=== PATIENT | female | born 1945 | race Caucasian/White ===

== ENCOUNTER 2016-04-23 10:26 | Emergency (ER) | payer MEDICARE ==
[2016-04-23 10:33] VITALS: BP 179/76
--- NOTE | 2016-04-23 10:35 | UC ---
Complaint Female HPI - HPI Summary HPI Summary: Day 2 of pain urgency burning frequency no fevers, chills, back pain, nausea or vomiting - History Of Current Complaint Chief Complaint: UCGU Stated Complaint: UTI Time Seen by Provider: 04/23/16 10:33 Hx Obtained From: Patient ?: No Onset/Duration: Sudden Onset, Lasting Days - 2, Still Present Timing: Constant Severity Initially: Moderate Severity Currently: Moderate Pain Intensity: 6 Pain Scale Used: 0-10 Numeric Character: Burning Aggravating Factor(s): Urination Alleviating Factor(s): Nothing Associated Signs And Symptoms: Negative: Fever, Back Pain, Vaginal Bleeding/ Discharge, Vaginal Discharge, Nausea, Vomiting(# Of Episodes =), Genital Swelling - Allergies/Home Medications Allergies/Adverse Reactions: Allergies Allergy/AdvReac Type Severity Reaction Status Date / Time Iodinated Diagnostic Agents Allergy Intermediate Swelling Verified 01/28/16 16: 05 Ciprofloxacin [From Cipro] Allergy Rash And Verified 01/28/16 16:05 Itching PMH/Surg Hx/FS Hx/Imm Hx Previously Healthy: No Endocrine History Of: Reports: Thyroid Disease Denies: Diabetes Cardiovascular History Of: Reports: Hypertension Denies: Cardiac Disorders, Pacemaker/ICD Respiratory History Of: Reports: COPD - Emphysema Denies: Asthma GI/ History Of: Reports: Ulcer Psychological History Of: Reports: Anxiety, Depression - Surgical History Surgical History: Yes Surgery Procedure, Year, and Place: Hysterectomy, laparoscopy, tonsillectomy, eye surgery for melanoma radiation treatment ,lt wrist surgery radius ulna. - Family History Known Family History: Positive: Hypertension, Other - no FHx of kidney stones or kidney disease Negative: Renal Disease - Social History Occupation: Retired Lives: With Family Alcohol Use: Occasionally Alcohol Amount: couple glasses of wine daily Substance Use Type: None Smoking Status (MU): Former Smoker Type: Cigarettes Amount Used/How Often: 1 ppd Length of Time of Smoking/Using Tobacco: 26 years Have You Smoked in the Last Year: No When Did the Patient Quit Smoking/Using Tobacco: 1991 - Immunization History Most Recent Influenza Vaccination: Season Most Recent Tetanus Shot: 2009 Most Recent Pneumonia Vaccination: never Review of Systems Constitutional: Negative Skin: Negative Eyes: Negative ENT: Negative Respiratory: Negative Cardiovascular: Negative Gastrointestinal: Negative Genitourinary: Dysuria, Hematuria, Frequency, Urgency Motor: Negative Neurovascular: Negative Musculoskeletal: Negative Neurological: Negative Psychological: Negative All Other Systems Reviewed And Are Negative: Yes Physical Exam Triage Information Reviewed: Yes Appearance: Well-Appearing, No Pain Distress, Well-Nourished Vital Signs: Initial Vital Signs Temp 97.2 F 04/23/16 10:28 Pulse 79 04/23/16 10:28 Resp 18 04/23/16 10:28 BP 179/76 04/23/16 10:28 Pulse Ox 98 04/23/16 10:28 Vital Signs Reviewed: Yes Eye Exam: Normal Eyes: Positive: Conjunctiva Clear ENT Exam: Normal ENT: Positive: Normal ENT inspection, Hearing grossly normal. Negative: Nasal congestion, Nasal drainage, Trismus, Muffled/hoarse voice Neck exam: Normal Neck: Positive: Supple, Nontender Respiratory Exam: Normal Respiratory: Positive: Chest non-tender, Lungs clear, Normal breath sounds, No respiratory distress, No accessory muscle use Cardiovascular Exam: Normal Cardiovascular: Positive: RRR, No Murmur, Pulses Normal, Brisk Capillary Refill Abdominal Exam: Normal Abdomen Description: Positive: No Organomegaly, Soft, Other: - supra pubic tenderness Bowel Sounds: Positive: Present Musculoskeletal Exam: Normal Musculoskeletal: Positive: Strength Intact, ROM Intact, No Edema Neurological Exam: Normal Neurological: Positive: Alert, Muscle Tone Normal Psychological Exam: Normal Skin Exam: Normal Diagnostics - Laboratory Diagnostic Studies Completed/Ordered: ua--positive for blood and leuks Complaint Female Dx - Course Course Of Treatment: keflex, pyridium, increase fluids, use inhaler for cough, follow with pcp - Differential Dx/Diagnosis Differential Diagnosis/HQI/PQRI: Renal Colic, Ureteral Stone, Urinary Tract Infection Provider Diagnoses: UTI, HYpertension, cough Discharge - Discharge Plan Condition: Stable Disposition: HOME Prescriptions: Cephalexin CAP* [Keflex CAP*] 500 mg PO BID #20 cap Phenazopyridine TAB* [Pyridium TAB*] 100 mg PO TID PRN #9 tab PRN Reason: urinary pain Patient Education Materials: Phenazopyridine (By mouth), Albuterol (By breathing), Urinary Tract Infection in Women (ED), How to Use a Metered-Dose Inhaler (ED) Referrals: Ruth Russell MD [Primary Care Provider] - If Needed Ghulam Randall MD [Medical Doctor] - 2 Weeks
== END 2016-04-23 10:50 | disposition home or self-care (01) ==
LOC: UCEAST 10:26
DX: N39.0 Urinary tract infection, site not specified (principal); I10 Essential (primary) hypertension; R05 Cough; J43.9 Emphysema, unspecified; F41.9 Anxiety disorder, unspecified; F32.9 Major depressive disorder, single episode, unspecified; Z87.891 Personal history of nicotine dependence; Z88.1 Allergy status to other antibiotic agents; E07.9 Disorder of thyroid, unspecified
CPT/HCPCS: 81002; 87077; 87086; 99212; G0463

== ENCOUNTER 2017-01-20 10:05 | Emergency (ER) | payer MEDICARE ==
[2017-01-20 10:28] VITALS: BP 176/87
--- NOTE | 2017-01-20 10:54 | UC ---
Complaint Female HPI - HPI Summary HPI Summary: Patient presents to the with CC of urgency, frequency, burning upon urination. Dark colored, cloudy urine. Denies flank pain. Denies diaphoresis and chills. Denies known fever. No abnormal vaginal discharge reported. Otherwise healthy. She states she had a UTI 6 months ago and was treated in with abx with relief. Denies other symptoms including malaise. - History Of Current Complaint Chief Complaint: UCGU Stated Complaint: URINARY ISSUE Time Seen by Provider: 01/20/17 10:41 Hx Obtained From: Patient ?: No Onset/Duration: Sudden Onset Timing: Constant Severity Initially: Moderate Severity Currently: Moderate Pain Intensity: 5 Pain Scale Used: 0-10 Numeric Character: Sharp, Burning Aggravating Factor(s): Nothing Associated Signs And Symptoms: Positive: Negative - Risk Factors Ectopic Risk Factor: Negative Ovarian Torsion Risk Factor: Negative - Allergies/Home Medications Allergies/Adverse Reactions: Allergies Allergy/AdvReac Type Severity Reaction Status Date / Time Iodinated Diagnostic Agents Allergy Intermediate Swelling Verified 01/20/17 10: 23 Ciprofloxacin [From Cipro] Allergy Rash And Verified 01/20/17 10:23 Itching PMH/Surg Hx/FS Hx/Imm Hx Previously Healthy: Yes - Surgical History Surgical History: Yes Surgery Procedure, Year, and Place: Hysterectomy, laparoscopy, tonsillectomy, eye surgery for melanoma radiation treatment ,lt wrist surgery radius ulna. - Family History Known Family History: Positive: Hypertension, Other - no FHx of kidney stones or kidney disease Negative: Renal Disease - Social History Occupation: Unemployed Lives: With Family Alcohol Use: Occasionally Alcohol Amount: couple glasses of wine daily Substance Use Type: None Smoking Status (MU): Former Smoker Type: Cigarettes Amount Used/How Often: 1 ppd Length of Time of Smoking/Using Tobacco: 26 years Have You Smoked in the Last Year: No When Did the Patient Quit Smoking/Using Tobacco: 1991 - Immunization History Most Recent Influenza Vaccination: 2012/2013 Season Most Recent Tetanus Shot: 2009 Most Recent Pneumonia Vaccination: never Review of Systems Constitutional: Negative Skin: Negative Respiratory: Negative Cardiovascular: Negative Genitourinary: Dysuria, Frequency, Urgency Motor: Negative Neurovascular: Negative Musculoskeletal: Negative Neurological: Negative Is Patient Immunocompromised?: No All Other Systems Reviewed And Are Negative: Yes Physical Exam Triage Information Reviewed: Yes Appearance: Well-Appearing, Well-Nourished Vital Signs: Initial Vital Signs Temp 97.6 F 01/20/17 10:24 Pulse 73 01/20/17 10:24 Resp 16 01/20/17 10:24 BP 176/87 01/20/17 10:24 Pulse Ox 97 01/20/17 10:24 Vital Signs Reviewed: Yes Eye Exam: Normal Eyes: Positive: Conjunctiva Clear Neck exam: Normal Neck: Positive: Supple, No Lymphadenopathy Respiratory Exam: Normal Respiratory: Positive: Chest non-tender Cardiovascular Exam: Normal Cardiovascular: Positive: RRR Musculoskeletal Exam: Normal Musculoskeletal: Positive: Strength Intact Neurological Exam: Normal Neurological: Positive: Alert Psychological: Positive: Normal Response To Family, Age Appropriate Behavior Skin Exam: Normal Complaint Female Dx - Course Course Of Treatment: UA performed. WBC and leuks seen. Patient experiencing urgency, frequency and pain on urination. Dark urine noted. No abnormal vaginal discharge or bleeding. No CVA tenderness bilaterally. No previous UTI within last 6 months and no recent Augmentin use. Will treat for uncomplicated UTI. Pyridium given for comfort. Return precautions and follow up with PCP. She will start on Macrobid x 5 days. - Differential Dx/Diagnosis Differential Diagnosis/HQI/PQRI: Renal Colic, Ureteral Stone, Urinary Tract Infection Provider Diagnoses: UTI Discharge - Discharge Plan Condition: Stable Disposition: HOME Prescriptions: Nitrofurantoin Monohyd Macro [Macrobid] 100 mg PO BID #10 cap Phenazopyridine TAB* [Pyridium 100 mg TAB*] 100 mg PO TID #12 tab Patient Education Materials: Urinary Tract Infection in Women (ED) Referrals: Ruth Russell MD [Primary Care Provider] - Additional Instructions: Dx. Urinary Tract Infection Drink plenty of fluids. Supplement with cranberry or link juice. You may also take an over the counter cranberry supplement. If you have any questions about this, you may ask your pharmacist. If your symptoms have not improved in 1-2 days, if you develop fever, sweats or chills, please go to your emergency room, or call your PCP. Antibiotics were prescribed to you. Please take as directed. Supplement with over the counter probiotics on the opposite schedule of your antibiotic to prevent secondary infections. Do not take together as they may counteract each other. Pyridium: This medication is used to treat pain, burning, increased urination, and increased urge to urinate. These symptoms are usually caused by infection, injury, surgery, catheter, or other conditions that irritate the lower urinary tract. Pyridium will treat the symptoms of a urinary tract infection, but this medication does not treat the actual infection. Take the antibiotic that your doctor prescribes to treat your infection. Pyridium will most likely darken the color of your urine to an orange or red color. This is a normal effect and is not cause for alarm unless you have other symptoms such as pale or yellowed skin, fever, stomach pain, nausea, and vomiting. Darkened urine may also cause stains to your underwear, which may or may not be removed by laundering. It can also permanently stain soft contact lenses, and you should not wear them while taking this medicine.
== END 2017-01-20 11:01 | disposition home or self-care (01) ==
LOC: UCEAST 10:05
DX: N39.0 Urinary tract infection, site not specified (principal); Z87.440 Personal history of urinary (tract) infections; Z90.710 Acquired absence of both cervix and uterus; Z88.1 Allergy status to other antibiotic agents; Z91.041 Radiographic dye allergy status; Z87.891 Personal history of nicotine dependence
CPT/HCPCS: 81003; 99212; G0463

== ENCOUNTER 2017-01-26 11:38 | Emergency (ER) | payer MEDICARE ==
[2017-01-26 11:52] VITALS: BP 141/59
--- NOTE | 2017-01-26 12:55 | UC ---
Complaint Female HPI - HPI Summary HPI Summary: pain, buring hematuria this morning seen 1 week ago with similar sx rx with macrobid without much relief, no fevers, chills nausea , vomiting or back pain - History Of Current Complaint Chief Complaint: UCGU Stated Complaint: URINARY ISSUE Time Seen by Provider: 01/26/17 12:49 Hx Obtained From: Patient ?: No Onset/Duration: Gradual Onset, Lasting Days, Worse Since - this morning Timing: Constant Severity Initially: Mild Severity Currently: Mild Pain Intensity: 4 Pain Scale Used: 0-10 Numeric Character: Burning Aggravating Factor(s): Urination Alleviating Factor(s): Meds - AZO Associated Signs And Symptoms: Positive: Negative - Allergies/Home Medications Allergies/Adverse Reactions: Allergies Allergy/AdvReac Type Severity Reaction Status Date / Time Iodinated Diagnostic Agents Allergy Intermediate Swelling Verified 01/26/17 11: 52 Ciprofloxacin [From Cipro] Allergy Rash And Verified 01/26/17 11:52 Itching PMH/Surg Hx/FS Hx/Imm Hx Previously Healthy: Yes Endocrine History: Hypothyroidism, Dyslipidemia Cardiovascular History: Hypertension Psychological History: Depression - Surgical History Surgical History: Yes Surgery Procedure, Year, and Place: Hysterectomy, laparoscopy, tonsillectomy, eye surgery for melanoma radiation treatment , lt wrist surgery radius ulna. - Family History Known Family History: Positive: Hypertension, Other - no FHx of kidney stones or kidney disease Negative: Renal Disease - Social History Occupation: Retired Lives: With Family Alcohol Use: Occasionally Alcohol Amount: couple glasses of wine daily Substance Use Type: None Smoking Status (MU): Former Smoker Type: Cigarettes Amount Used/How Often: 1 ppd Length of Time of Smoking/Using Tobacco: 26 years Have You Smoked in the Last Year: No When Did the Patient Quit Smoking/Using Tobacco: 1991 - Immunization History Most Recent Influenza Vaccination: Season Most Recent Tetanus Shot: 2009 Most Recent Pneumonia Vaccination: never Review of Systems Constitutional: Negative Skin: Negative Eyes: Negative ENT: Negative Respiratory: Negative Cardiovascular: Negative Gastrointestinal: Negative Genitourinary: Dysuria, Hematuria, Frequency, Urgency Motor: Negative Neurovascular: Negative Musculoskeletal: Negative Neurological: Negative Psychological: Negative Is Patient Immunocompromised?: No All Other Systems Reviewed And Are Negative: Yes Physical Exam Triage Information Reviewed: Yes Appearance: Well-Appearing, No Pain Distress, Well-Nourished Vital Signs: Initial Vital Signs Temp 98 F 10/06/17 11:46 Pulse 84 01/26/17 11:46 Resp 18 01/26/17 11:46 BP 141/59 01/26/17 11:46 Pulse Ox 99 01/26/17 11:46 Vital Signs Reviewed: Yes Eye Exam: Normal Eyes: Positive: Conjunctiva Clear ENT Exam: Normal ENT: Positive: Normal ENT inspection, Hearing grossly normal. Negative: Nasal congestion, Nasal drainage, Trismus, Muffled/hoarse voice Dental Exam: Normal Neck exam: Normal Neck: Positive: Supple, Nontender Respiratory Exam: Normal Respiratory: Positive: Chest non-tender, No respiratory distress, No accessory muscle use Cardiovascular Exam: Normal Cardiovascular: Positive: RRR, Pulses Normal, Brisk Capillary Refill Abdominal Exam: Normal Abdomen Description: Positive: Nontender, No Organomegaly, Soft. Negative: CVA Tenderness (R), CVA Tenderness (L), Distended, Guarding, Hepatomegaly, McBurney' s Point Tenderness, Peritoneal Signs, Pulsatile Mass, Splenomegaly Bowel Sounds: Positive: Present Musculoskeletal Exam: Normal Musculoskeletal: Negative: Strength Intact, ROM Intact, No Edema Neurological Exam: Normal Neurological: Positive: Alert, Muscle Tone Normal Psychological Exam: Normal Skin Exam: Normal Complaint Female Dx - Course Course Of Treatment: Augmentin, pyrdium, increase fluids, culture urine, follow with pcp prn - Differential Dx/Diagnosis Differential Diagnosis/HQI/PQRI: Renal Colic, Ureteral Stone, Urinary Tract Infection Provider Diagnoses: UTI Discharge - Discharge Plan Condition: Stable Disposition: HOME Prescriptions: Amoxicillin/Clavulanate TAB* [Augmentin TAB 500 mg*] 500 mg PO TID #30 tab Phenazopyridine TAB* [Pyridium 100 mg TAB*] 100 mg PO TID PRN #15 tab PRN Reason: urinary pain Patient Education Materials: Phenazopyridine (By mouth), Urinary Tract Infection in Women (ED) Referrals: Ruth Russell MD [Primary Care Provider] - If Needed
== END 2017-01-26 13:04 | disposition home or self-care (01) ==
LOC: UCEAST 11:38
DX: N39.0 Urinary tract infection, site not specified (principal); E03.9 Hypothyroidism, unspecified; I10 Essential (primary) hypertension; E78.5 Hyperlipidemia, unspecified; Z87.891 Personal history of nicotine dependence
CPT/HCPCS: 81003; 87077; 87086; 87186; 99212; G0463

== ENCOUNTER 2017-02-07 10:49 | Emergency (ER) | payer MEDICARE ==
[2017-02-07 11:05] VITALS: BP 154/86
[2017-02-07] MEDS: DOXYcycline CAP(*) 100 MG PO ONE (11:43)
--- NOTE | 2017-02-07 11:48 | UC ---
Skin Complaint HPI - HPI Summary HPI Summary: NOTICED A TICK ATTACHED LEFT POSTERIOR SHOULDER AFTER GETTING OUT OF THE SHOWER THIS MORNING. TRIED TO REMOVE IT BUT WAS UNSUCCESSFUL. IS CONCERNED ABOUT LYME. NOT SURE HOW LONG IT WAS ATTACHED. - History of Current Complaint Chief Complaint: UCSkin Time Seen by Provider: 02/07/17 10:53 Stated Complaint: TICK BITE Hx Obtained From: Patient Onset/Duration: Sudden Onset, Still Present Timing: Constant Onset Severity: Mild Current Severity: Mild Pain Intensity: 2 Pain Scale Used: 0-10 Numeric Character: Redness Aggravating Factor(s): Touch Alleviating Factor(s): Nothing Associated Signs & Symptoms: Positive: Rash, Tenderness Related History: Insect Bite/Sting - Allergy/Home Medications Allergies/Adverse Reactions: Allergies Allergy/AdvReac Type Severity Reaction Status Date / Time Iodinated Diagnostic Agents Allergy Intermediate Swelling Verified 02/07/17 10: 57 Ciprofloxacin [From Cipro] Allergy Rash And Verified 02/07/17 10:57 Itching Review of Systems Constitutional: Negative Skin: Other - TICK BITE Respiratory: Negative Cardiovascular: Negative Gastrointestinal: Negative Musculoskeletal: Negative Neurological: Negative All Other Systems Reviewed And Are Negative: Yes PMH/Surg Hx/FS Hx/Imm Hx Endocrine History: Hypothyroidism Cardiovascular History: Hypertension Respiratory History: COPD GI/ History: Ulcer Other Cancer History: CHOROIDAL MELANOMA - Surgical History Surgical History: Yes Surgery Procedure, Year, and Place: Hysterectomy, laparoscopy, tonsillectomy, eye surgery for melanoma radiation treatment , lt wrist surgery radius ulna. - Family History Known Family History: Positive: Hypertension, Other - no FHx of kidney stones or kidney disease Negative: Renal Disease - Social History Alcohol Use: Occasionally Alcohol Amount: couple glasses of wine daily Substance Use Type: None Smoking Status (MU): Former Smoker Type: Cigarettes Amount Used/How Often: 1 ppd Length of Time of Smoking/Using Tobacco: 26 years Have You Smoked in the Last Year: No When Did the Patient Quit Smoking/Using Tobacco: 1991 - Immunization History Most Recent Influenza Vaccination: Season Most Recent Tetanus Shot: 2009 Most Recent Pneumonia Vaccination: never Physical Exam Triage Information Reviewed: Yes Appearance: Well-Appearing, No Pain Distress, Well-Nourished Vital Signs: Initial Vital Signs Temp 98.5 F 02/07/17 10:53 Pulse 79 02/07/17 10:53 Resp 18 02/07/17 10:53 Pulse Ox 98 02/07/17 10:53 Vital Signs Reviewed: Yes Eyes: Positive: Conjunctiva Clear ENT: Positive: Hearing grossly normal Neck: Positive: Supple Respiratory: Positive: No respiratory distress, No accessory muscle use Cardiovascular: Positive: Pulses Normal Abdomen Description: Positive: Soft Neurological: Positive: Alert Psychological: Positive: Age Appropriate Behavior Skin: Positive: Other - TICK EMBEDDED LEFT POSTERIOR SHOULDER WITH 1CM SURROUNDING ERYTHEMA Course/Dx - Course Course Of Treatment: TICK REMOVED IN ENTIRETY USING SPLINTER FORCEPS AND 18G NEEDLE - Diagnoses Provider Diagnoses: TICK BITE LEFT POSTERIOR SHOULDER, LYME PEP Discharge - Discharge Plan Condition: Stable Disposition: HOME Patient Education Materials: Tick Bite (ED) Referrals: Ruth Russell MD [Primary Care Provider] - If Needed Additional Instructions: TICK REMOVED IN ENTIRETY. ONE TIME DOSE OF DOXY (200MG) GIVEN TODAY. TICK BITE PROPHYLAXIS The Infectious Disease Society of [place] (IDSA) does not generally recommend antimicrobial prophylaxis for prevention of Lyme disease after a recognized tick bite. However, in areas that are highly endemic for Lyme disease, a single dose of doxycycline may be offered to adult patients (200 mg) who are not and to children older than 8 years of age (4 mg/kg up to a maximum dose of 200 mg) when all of the following circumstances exist: CRITERIA FOR RECEIVING PROPHYLACTIC TREATMENT FOR LYME DISEASE 1) TICK ATTACHED FOR AT LEAST 36 HRS 2) TICK IS AN ADULT OR [place] DEER TICK 3) YOU LIVE IN AN AREA WHERE LYME DISEASE IS PREVALENT (i.e., [place], [place], [place], , [place] , [place], [place], [place], [place], [place], [place], [place], [place], [place]) 4) YOU HAVE NO CONTRAINDICATION TO THE MEDICATION (DOXYCYCLINE) 5) PROPHYLAXIS IS BEGUN WITHIN 72 HRS OF TICK REMOVAL BE VIGILANT OF YOUR SYMPTOMS AND DON'T HESITATE TO GET SEEN AGAIN IF YOU DEVELOP UNEXPLAINED FEVER, HEADACHE, JOINT PAIN, BODY ACHES, RASH OR ANY OTHER CONCERNING SYMPTOMS. Antibiotic treatment following a tick bite is not recommended as a means to prevent anaplasmosis, babesiosis, ehrlichiosis, or Clara spotted fever. There is no evidence this practice is effective, and it may simply delay onset of disease. Instead, persons who experience a tick bite should be alert for symptoms suggestive of tickborne illness and consult a physician if fever, rash, or other symptoms of concern develop.
== END 2017-02-07 11:49 | disposition home or self-care (01) ==
LOC: UCEAST 10:49
DX: S40.262A Insect bite (nonvenomous) of left shoulder, initial encounter (principal); W57.XXXA Bitten or stung by nonvenomous insect and other nonvenomous arthropods, initial encounter
CPT/HCPCS: 99212; A9270-GY; G0463

== ENCOUNTER 2017-04-19 10:44 | Emergency (ER) | payer MEDICARE ==
[2017-04-19] MEDS ORDERED: Aspirin Low Dose CHEW TAB* 81 MG ONE (11:09)
[2017-04-19] MEDS ORDERED: Aspirin Low Dose CHEW TAB* 81 MG PO ONE (11:11)
[2017-04-19 11:23] VITALS: BP 221/117
--- NOTE | 2017-04-19 11:48 | UC ---
Jose Knight Angela, scribed for Telma Pathak MD on 04/19/17 at 1114 . Cardiac HPI - HPI Summary HPI Summary: This pt is a 71 y/o female presenting to [facility] c/o awakening this am with pain across upper chest to upper shoulders. + cough. Subj increase temp. Hx of wheezing, has inhalers, has not used. + headache, frontal. No vis / aud issues reported. No GI upset. No sob perse but pain is worse with deep breath. Unclear to what extent it may be positional. No rash. No hx of similar. - History of Current Complaint Chief Complaint: UCChestPain Stated Complaint: SHORTNESS OF BREATH Time Seen by Provider: 04/19/17 10:50 Hx Obtained From: Patient Onset/Duration: Lasting Hours, Still Present Timing: Constant - Allergy/Home Medications Allergies/Adverse Reactions: Allergies Allergy/AdvReac Type Severity Reaction Status Date / Time Iodinated Diagnostic Agents Allergy Intermediate Swelling Verified 04/19/17 10: 57 Ciprofloxacin [From Cipro] Allergy Rash And Verified 04/19/17 10:57 Itching Home Medications: Home Medications Cranberry-Vitamin C-Probiotic [Azo Cranberry 250-30 mg] 1 tab PO BID PRN [History Confirmed 04/19/17] Fluticasone HFA 110 mcg(NF) [Flovent HFA 110 mcg(NF)] 1 puff INH BID 04/19/17 [ History Confirmed 04/19/17] PMH/Surg Hx/FS Hx/Imm Hx - Additional Past Medical History Additional PMH: PMHx: hyperlipidemia, osteopenia, peptic ulcer disease Previously Healthy: No - see below Endocrine History: Thyroid Disease Cardiovascular History: Hypertension Respiratory History: COPD, Other Other Respiratory History: emphysema 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 - Family History Known Family History: Positive: Cardiac Disease - mother and father, Hypertension, Other - no FHx of kidney stones or kidney disease Negative: Renal Disease - Social History Alcohol Use: Daily Alcohol Amount: couple glasses of wine daily Substance Use Type: None Smoking Status (MU): Former Smoker Type: Cigarettes Amount Used/How Often: 1 ppd Length of Time of Smoking/Using Tobacco: 26 years Have You Smoked in the Last Year: No When Did the Patient Quit Smoking/Using Tobacco: 1991 - Immunization History Most Recent Influenza Vaccination: fall 2016 Most Recent Tetanus Shot: 2009 Most Recent Pneumonia Vaccination: never Review of Systems Constitutional: Fatigue Skin: Negative Eyes: Negative ENT: Negative Respiratory: Cough Cardiovascular: Chest Pain Gastrointestinal: Negative Genitourinary: Negative Motor: Negative Neurovascular: Negative - denies focal weakness / p / d Musculoskeletal: Negative Neurological: Headache Psychological: Anxious - appropriately concerned Is Patient Immunocompromised?: No All Other Systems Reviewed And Are Negative: Yes Physical Exam Triage Information Reviewed: Yes Appearance: Well-Nourished - looks uncomfortable. Able speak in full sentances , clearly and appropriately. Non-diaphoretic. Vital Signs: Initial Vital Signs Temp 97.7 F 04/19/17 10:50 Pulse 92 04/19/17 10:50 Resp 18 04/19/17 10:50 BP 229/117 04/19/17 10:50 Pulse Ox 97 04/19/17 10:50 Vital Signs Reviewed: Yes Eye Exam: Normal ENT Exam: Normal ENT: Positive: Pharynx normal - grossly normal + dentures. Remote tonsillectomy. Neck: Positive: Supple, Nontender Respiratory Exam: Other - BS equal. Mild exp wheeze bilat. No rtx. Full inspiration, but reports pain with deep breath. Unable to reproduce tenderness by pressure. Points to tender areas upper chest, upper sternum, extending up to neck. No crepitus noted. Cardiovascular: Positive: RRR, No Murmur - no deirdre murmur but loud environment , Pulses Normal - correlates with HR., Brisk Capillary Refill Abdominal Exam: Normal Abdomen Description: Positive: Nontender, No Organomegaly, Soft Bowel Sounds: Positive: Present Musculoskeletal Exam: Normal - moves all 4 ext's. Sits up and lies down ok. Gait slow, steady. Musculoskeletal: Positive: Strength Intact Neurological Exam: Normal - Facial expressions symmetric. Grossly nonfocal Psychological Exam: Normal - conversing easily and appropriately. Appears anxious. Skin Exam: Normal - no visible or reported rash - Assessment/Plan Course Of Treatment: I reviewed EKG with pt. SR 79 BPM + LBBB. Hx LBBB Dec 2015; however, pt is unfamiliar with this. Reviewed High blood pressure. I strongly encouraged EMS transport to ED. Ms. Fitzpatrick carefully considered this but respectfully but firmly declined, citing that her family member (who brought here here) will drive. She is aware of the risk of worse or new problems en route, including but not limited to disability or even . I called the ED, spoke with Dr. Carvajal. ASA 3 baby chewables here, she took one chewable at home. Questions as posed answered to the best of my ability. - Clinical Impression Provider Diagnoses: Acute chest pain (since approx 7am). Hypertension. Wheezing Discharge - Discharge Plan Condition: Guarded Disposition: TRANS HIGHER LVL OF CARE FAC Referrals: No Primary Care Phys,NOPCP [Primary Care Provider] - Additional Instructions: I recommend EMS. However, if your family is driving you please go directly to the Emergency Department. Call 911 if problems en route. The documentation as recorded by the Jose greene Angela accurately reflects the service I personally performed and the decisions made by me, Telma Pathak MD.
== END 2017-04-19 11:18 | disposition short-term general hospital (02) ==
LOC: UCEAST 10:44
DX: R07.9 Chest pain, unspecified (principal); I10 Essential (primary) hypertension; R06.2 Wheezing; J43.9 Emphysema, unspecified; Z87.891 Personal history of nicotine dependence; Z72.89 Other problems related to lifestyle
CPT/HCPCS: 93005; 99212; A9270-GY; G0463

== ENCOUNTER 2017-04-19 11:41 | Observation (INO) | payer MEDICARE ==
[2017-04-19] MEDS ORDERED: Nitroglycerin TAB 0.4 MG* 0.4 MG TAB SL ONE ×2 (13:04→17:41)
[2017-04-19] MEDS: NS 0.9% 1000 ML* 1,000 ML IV SCH ×2 (13:20→22:10)
--- NOTE | 2017-04-19 13:38 | RAD ---
Indication: Chest pain. Single frontal view of the chest performed at 1320 hours was reviewed. Comparison is made with previous exam dated March 01, 2011. Likely granuloma is noted in the right lung base. No mediastinal shift is noted. Heart is of normal size and aeration. IMPRESSION: NO ACTIVE CARDIOPULMONARY DISEASE IS NOTED.
[2017-04-19 13:44] LABS: ABS Basophils 0.1 10^3/ul (0-0.2); ABS Eosinophils 0 10^3/ul (0-0.6); ABS Lymphocytes 1.4 10^3/ul (1.0-4.8); ABS Monocytes 0.7 10^3/ul (0-0.8); ABS Neutrophils 6.8 10^3/ul (1.5-7.7); ABS Nucleated RBC 0.01 10^3/ul; Eosinophil % 0.4 % (0-6); Hematocrit 46 % (35-47); Hemoglobin 15.5 g/dl (12.0-16.0); Lymphocyte % 15.9 % (25-47); Mean Corpuscular HGB Conc 34 g/dl (31-36); Mean Corpuscular Hemoglobin 32 pg (27-31); Mean Corpuscular Volume 94 fL (80-97); Mean Platelet Volume 7 um3 (7.4-10.4); Nucleated Red Blood Cells % 0.1; Platelet Count 242 10^3/ul (150-450); Red Blood Count 4.86 10^6/ul (4.0-5.4); Red Cell Distribution Width 15 % (10.5-15)
[2017-04-19] MEDS ORDERED: Ondansetron INJ* 2 MG/ML VIAL IV ONE (13:44)
[2017-04-19] MEDS ORDERED: Morphine INJ* 4 MG/ML 1 ML CARPUJECT IV ONE (13:44)
[2017-04-19 13:57] LABS: INR 0.83 (0.77-1.02)
[2017-04-19 14:00] LABS: EGFR Non-African American 68.9 (>60)
--- NOTE | 2017-04-19 14:34 | RAD ---
INDICATION: Headaches. CT of the brain was performed without IV contrast. Ventricular structures are midline. No midline shift is noted. The extra-axial spaces are unremarkable. There is no evidence of intracranial mass or hemorrhage. No other high or low density lesions are identified. Mastoid air cells and paranasal sinuses are otherwise unremarkable. IMPRESSION: No intracranial mass or hemorrhage is noted.
[2017-04-19 14:40] LABS: Urine Appearance Clear; Urine Blood Negative (Negative); Urine Color Yellow; Urine Ketones Negative (Negative); Urine Protein Negative (Negative); Urine Specific Gravity 1.011 (1.010-1.030); Urine Urobilinogen Negative (Negative)
--- NOTE | 2017-04-19 14:47 | RAD ---
INDICATION: Upper chest pain. COMPARISON: April 19, 2017 chest radiograph. March 14, [address] TECHNIQUE: Multidetector CT images were obtained from the lung apices to the upper abdomen. Evaluation of the viscera is limited without IV contrast. REPORT: Advanced panlobular emphysema. No alveolar consolidation, pleural effusion, pneumothorax. Image 41 5 mm low-density nodule at the lateral basal segment of the RIGHT lower lobe is unchanged. Image 49 0.7 cm soft tissue density subpleural nodule at the lateral basal segment of the RIGHT lower lobe is unchanged. Medial adjacent 0.4 cm nodule at the same level is also unchanged. No new focal pulmonary lesions evident. Negative for thoracic lymphadenopathy, cardiomegaly, pericardial effusion. Coronary artery calcifications. Normal diameter thoracic aorta with mild calcific plaque. Limited images through the upper abdomen are remarkable for fullness of the partially visualized LEFT renal collecting system The prior exam. 0.9 cm hypodense lesion at the posterior segment of the RIGHT hepatic lobe is unchanged compared with the January 06, [address] and most consistent with a benign cyst based on low density. Similar unchanged hepatic cyst at the LEFT lateral hepatic segment. Negative for suspicious thoracic osseous lesions. IMPRESSION: 1. Advanced emphysema. 2. No evidence for pneumonia. 3. Stable RIGHT pulmonary nodules compared with a CT from 2010 without concern. No suspicious focal pulmonary lesions evident. 4. Coronary artery calcifications. 5. Partially visualized LEFT kidney with suggestion of hydronephrosis. Correlate with clinical assessment and consider follow-up renal ultrasound for further assessment
--- NOTE | 2017-04-19 16:47 | RAD ---
INDICATION: Enlarged left kidney seen on chest CT. COMPARISON: Comparison is made with a prior CT of the abdomen and pelvis from January 06, 2016. TECHNIQUE: A CT scan of the abdomen and pelvis was performed without intravenous or oral contrast. Contiguous axial sections were obtained from the lung bases through the symphysis pubis. Images were reconstructed in the coronal and sagittal planes. FINDINGS: Images through the lung bases demonstrate dependent bilateral lower lobe subsegmental atelectasis. There are 2 nodules in the posterior aspect of the right lower lobe measuring 7 and 4 mm each. These are unchanged significantly in size from a prior CT of the chest from March 14, 2011. No pleural effusion is present. The liver and spleen are normal in size. There are several small hypodense hepatic lesions which appear unchanged from the prior exam favoring cysts or hemangiomas. No calcified gallstones are seen. The pancreas appears to be within normal limits. The adrenal glands and kidneys are normal in size. No renal calculi or hydronephrosis is seen. There appear to be several left peripelvic renal cysts which would likely account for the abnormality noted on the prior CT of the chest. No ureteral or bladder calculi are seen. The aorta is normal in caliber with moderate calcific plaque present. No significant enlarged retroperitoneal lymph nodes are seen. The stomach, small and large bowel appear nondistended. The appendix appears to be within normal limits. There is mild descending and sigmoid diverticulosis without evidence for diverticulitis. The patient is status post hysterectomy. No free intraperitoneal air or fluid is seen. No significant focal osseous abnormality is seen. IMPRESSION: 1. NO EVIDENCE FOR ACUTE FINDING. 2. THERE ARE SEVERAL LEFT PERIPELVIC RENAL CYSTS WHICH APPEAR TO ACCOUNT FOR THE ABNORMALITY NOTED ON THE PRIOR CT OF THE CHEST.
[2017-04-19] MEDS ORDERED: Heparin DRIP 25,000 UNITS(*) 25,000 UNITS/500 ML BAG IVPB SCH (17:45)
[2017-04-19] MEDS ORDERED: Albuterol HFA INHALER* 8 gm MDI INH PRN (17:51)
[2017-04-19] MEDS ORDERED: Heparin VIAL(*) 5000 UNITS/ML VIAL (FIVE THOUSAND) IV SCH (18:00)
[2017-04-19] MEDS ORDERED: Atorvastatin* 20 MG TAB PO SCH (18:00)
[2017-04-19] MEDS ORDERED: Metoprolol Tartrate TAB* 25 MG PO SCH (18:00)
--- NOTE | 2017-04-19 18:11 | ED ---
Karissa Knight Abhishek, scribed for Alec Tam MD on 04/19/17 at 1322 . HPI Chest Pain - HPI Summary HPI Summary: This patient is a 71 year old F presenting to [facility] accompanied by female with a chief complaint of CP since 0700 today (04/19/17). The patient states the pain originated in the upper chest and the pain radiates to the back and neck. Pt is on baby aspirin. Pt states that she is allergic to the IV dye. The patient rates the pain 8/10 in severity initially but currently is a 7/10. Symptoms aggravated by movement. Symptoms alleviated by nothing. Patient reports ADLER (diffuse frontal), diaphoresis, and SOB. Patient denies nausea, abd pain, body aches, and calf edema. - History of Current Complaint Chief Complaint: EDChestPainROMI Time Seen by Provider: 04/19/17 12:21 Initial Severity: Severe - initial pain intesity was 8/10 in severity Current Severity: Moderate - 7/10 in pain intesity severity currently Pain Intensity: 8 Pain Scale Used: 0-10 Numeric Chest Pain Location: Discrete at: - upper chest Chest Pain Radiates: Yes Chest Pain Radiates To:: Back, Neck Aggravating Factor(s): Movement Alleviating Factor(s): Nothing Associated Signs and Symptoms: Positive: Chest Pain, Headaches - (diffuse frontal), Shortness of Breath - Negative body aches and calf edema, Diaphoresis , Other: - body aches. Negative: Nausea, Abdominal Pain - Additional Pertinent History Primary Care Physician: [id number] - Allergy/Home Medications Allergies/Adverse Reactions: Allergies Allergy/AdvReac Type Severity Reaction Status Date / Time Iodinated Diagnostic Agents Allergy Intermediate Swelling Verified 04/19/17 10: 57 Ciprofloxacin [From Cipro] Allergy Rash And Verified 04/19/17 10:57 Itching PMH/Surg Hx/FS Hx/Imm Hx Endocrine/Hematology History: Reports: Hx Thyroid Disease Denies: Hx Diabetes Cardiovascular History: Reports: Hx Hypercholesterolemia, Hx Hypertension Denies: Hx Pacemaker/ICD Respiratory History: Reports: Hx Chronic Obstructive Pulmonary Disease (COPD) - Emphysema Denies: Hx Asthma GI History: Reports: Hx Ulcer Musculoskeletal History: Reports: Hx Arthritis Sensory History: Reports: Hx Contacts or Glasses Denies: Hx Hearing Aid Opthamlomology History: Reports: Hx Contacts or Glasses Psychiatric History: Reports: Hx Anxiety, Hx Depression Denies: Hx Panic Disorder - Cancer History Cancer Type, Location and Year: [place] melanoma - radiation 10 years ago - Surgical History Surgery Procedure, Year, and Place: Hysterectomy, laparoscopy, tonsillectomy, eye surgery for melanoma radiation treatment , lt wrist surgery radius ulna. 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3 Denies: Hx Clostridium Difficile, Hx Human Immunodeficiency Virus (HIV), Hx of Known/Suspected MRSA, Hx Shingles, Hx Tuberculosis, Hx Known/Suspected VRE, Hx Known/Suspected VRSA, History Other Infectious Disease, Traveled Outside the [place] in Last 30 Days - Family History Known Family History: Positive: Hypertension, Other - no FHx of kidney stones or kidney disease Negative: Renal Disease - Social History Alcohol Use: Daily Alcohol Amount: couple glasses of wine daily Substance Use Type: Reports: None Smoking Status (MU): Former Smoker Type: Cigarettes Amount Used/How Often: 1 ppd Length of Time of Smoking/Using Tobacco: 26 years Have You Smoked in the Last Year: No Review of Systems Positive: Skin Diaphoresis Eyes: Negative ENT: Negative Positive: Chest Pain - upper Positive: Shortness Of Breath Negative: Abdominal Pain, Nausea Genitourinary: Negative Musculoskeletal: Other - Negative body aches Positive: Myalgia - back and neck pain, Other - Negative calf edema Skin: Negative Positive: Headache - (diffuse and frontal) Psychological: Normal All Other Systems Reviewed And Are Negative: Yes Physical Exam - Summary Physical Exam Summary: General: well-appearing, Mild to moderate pain distress Skin: warm, color reflects adequate perfusion, dry Head: normal Eyes: EOMI, PATRICIA ENT: normal Neck: supple, nontender Respiratory: CTA, breath sounds present Cardiovascular: RRR Abdomen: soft, nontender Bowel: present Musculoskeletal: normal, strength/ROM intact Neurological: normal, sensory/motor intact, A&O x3 Psychological: affect/mood appropriate Triage Information Reviewed: Yes Vital Signs On Initial Exam: Initial Vitals Temp Pulse Resp BP Pulse Ox 98.3 F 84 20 188/108 98 04/19/17 11:44 04/19/17 11:44 04/19/17 11:44 04/19/17 11:44 04/19/17 11:44 Vital Signs Reviewed: Yes Diagnostics - Vital Signs Vital Signs Temp Pulse Resp BP Pulse Ox 04/19/17 11:44 98.3 F 84 20 188/108 98 - Laboratory Lab Results: Lab Results 04/19/17 04/19/17 04/19/17 Range/Units 13:19 13:19 13:19 WBC 9.0 (3.5-10.8) 10^3/ul RBC 4.86 (4.0-5.4) 10^6/ul Hgb 15.5 (12.0-16.0) g/dl Hct 46 (35-47) % MCV 94 (80-97) fL MCH 32 H (27-31) pg MCHC 34 (31-36) g/dl RDW 15 (10.5-15) % Plt Count 242 (150-450) 10^3/ul MPV 7 L (7.4-10.4) um3 Neut % (Auto) 75.2 (38-83) % Lymph % (Auto) 15.9 L (25-47) % [place] % (Auto) 7.8 (1-9) % Eos % (Auto) 0.4 (0-6) % Baso % (Auto) 0.7 (0-2) % Absolute Neuts (auto) 6.8 (1.5-7.7) 10^3/ul Absolute Lymphs (auto) 1.4 (1.0-4.8) 10^3/ul Absolute Monos (auto) 0.7 (0-0.8) 10^3/ul Absolute Eos (auto) 0 (0-0.6) 10^3/ul Absolute Basos (auto) 0.1 (0-0.2) 10^3/ul Absolute Nucleated RBC 0.01 10^3/ul Nucleated RBC % 0.1 INR (Anticoag Therapy) (0.77-1.02) APTT (26.0-36.3) seconds D-Dimer, Quantitative (Less Than 230) ng/mL Sodium 136 (133-145) mmol/L Potassium 3.9 (3.5-5.0) mmol/L Chloride 103 (101-111) mmol/L Carbon Dioxide 23 (22-32) mmol/L Anion Gap 10 (2-11) mmol/L BUN 12 (6-24) mg/dL Creatinine 0.82 (0.51-0.95) mg/dL Est GFR ( Amer) 88.6 (>60) Est GFR (Non-Af Amer) 68.9 (>60) BUN/Creatinine Ratio 14.6 (8-20) Glucose 87 (70-100) mg/dL Lactic Acid (0.5-2.0) mmol/L Calcium 9.4 (8.6-10.3) mg/dL Magnesium 2.4 (1.9-2.7) mg/dL Total Bilirubin 0.60 (0.2-1.0) mg/dL AST 50 H (13-39) U/L ALT 34 (7-52) U/L Alkaline Phosphatase 38 (34-104) U/L Total Creatine Kinase 59 (10-223) U/L CK-MB (CK-2) 1.8 (0.6-6.3) ng/mL Troponin I 0.00 (<0.04) ng/mL C-Reactive Protein 5.04 H (< 5.00) mg/L B-Natriuretic Peptide 57 ( - 100) pg/mL Total Protein 7.1 (6.4-8.9) g/dL Albumin 4.2 (3.2-5.2) g/dL Globulin 2.9 (2-4) g/dL Albumin/Globulin Ratio 1.4 (1-3) TSH 96.43 H (0.34-5.60) mcIU/mL Free T4 (0.61-1.12) ng/dL Total T3 Urine Color Urine Appearance Urine pH (5-9) Ur Specific [place] (1.010-1.030) Urine Protein (Negative) Urine Ketones (Negative) Urine Blood (Negative) Urine Nitrate (Negative) Urine Bilirubin (Negative) Urine Urobilinogen (Negative) Ur Leukocyte Esterase (Negative) Urine Glucose (Negative) Influenza A (Rapid) (Negative) Influenza B (Rapid) (Negative) 04/19/17 04/19/17 04/19/17 Range/Units 13:19 13:19 14:23 WBC (3.5-10.8) 10^3/ul RBC (4.0-5.4) 10^6/ul Hgb (12.0-16.0) g/dl Hct (35-47) % MCV (80-97) fL MCH (27-31) pg MCHC (31-36) g/dl RDW (10.5-15) % Plt Count (150-450) 10^3/ul MPV (7.4-10.4) um3 Neut % (Auto) (38-83) % Lymph % (Auto) (25-47) % [place] % (Auto) (1-9) % Eos % (Auto) (0-6) % Baso % (Auto) (0-2) % Absolute Neuts (auto) (1.5-7.7) 10^3/ul Absolute Lymphs (auto) (1.0-4.8) 10^3/ul Absolute Monos (auto) (0-0.8) 10^3/ul Absolute Eos (auto) (0-0.6) 10^3/ul Absolute Basos (auto) (0-0.2) 10^3/ul Absolute Nucleated RBC 10^3/ul Nucleated RBC % INR (Anticoag Therapy) 0.83 (0.77-1.02) APTT 26.9 (26.0-36.3) seconds D-Dimer, Quantitative < 200 (Less Than 230) ng/mL Sodium (133-145) mmol/L Potassium (3.5-5.0) mmol/L Chloride (101-111) mmol/L Carbon Dioxide (22-32) mmol/L Anion Gap (2-11) mmol/L BUN (6-24) mg/dL Creatinine (0.51-0.95) mg/dL Est GFR ( Amer) (>60) Est GFR (Non-Af Amer) (>60) BUN/Creatinine Ratio (8-20) Glucose (70-100) mg/dL Lactic Acid 1.4 (0.5-2.0) mmol/L Calcium (8.6-10.3) mg/dL Magnesium (1.9-2.7) mg/dL Total Bilirubin (0.2-1.0) mg/dL AST (13-39) U/L ALT (7-52) U/L Alkaline Phosphatase (34-104) U/L Total Creatine Kinase (10-223) U/L CK-MB (CK-2) (0.6-6.3) ng/mL Troponin I (<0.04) ng/mL C-Reactive Protein (< 5.00) mg/L B-Natriuretic Peptide ( - 100) pg/mL Total Protein (6.4-8.9) g/dL Albumin (3.2-5.2) g/dL Globulin (2-4) g/dL Albumin/Globulin Ratio (1-3) TSH (0.34-5.60) mcIU/mL Free T4 (0.61-1.12) ng/dL Total T3 Urine Color Yellow Urine Appearance Clear Urine pH 7.0 (5-9) Ur Specific [place] 1.011 (1.010-1.030) Urine Protein Negative (Negative) Urine Ketones Negative (Negative) Urine Blood Negative (Negative) Urine Nitrate Negative (Negative) Urine Bilirubin Negative (Negative) Urine Urobilinogen Negative (Negative) Ur Leukocyte Esterase Negative (Negative) Urine Glucose Negative (Negative) Influenza A (Rapid) (Negative) Influenza B (Rapid) (Negative) 04/19/17 04/19/17 04/19/17 Range/Units 16:40 16:40 17:20 WBC (3.5-10.8) 10^3/ul RBC (4.0-5.4) 10^6/ul Hgb (12.0-16.0) g/dl Hct (35-47) % MCV (80-97) fL MCH (27-31) pg MCHC (31-36) g/dl RDW (10.5-15) % Plt Count (150-450) 10^3/ul MPV (7.4-10.4) um3 Neut % (Auto) (38-83) % Lymph % (Auto) (25-47) % [place] % (Auto) (1-9) % Eos % (Auto) (0-6) % Baso % (Auto) (0-2) % Absolute Neuts (auto) (1.5-7.7) 10^3/ul Absolute Lymphs (auto) (1.0-4.8) 10^3/ul Absolute Monos (auto) (0-0.8) 10^3/ul Absolute Eos (auto) (0-0.6) 10^3/ul Absolute Basos (auto) (0-0.2) 10^3/ul Absolute Nucleated RBC 10^3/ul Nucleated RBC % INR (Anticoag Therapy) (0.77-1.02) APTT (26.0-36.3) seconds D-Dimer, Quantitative (Less Than 230) ng/mL Sodium (133-145) mmol/L Potassium (3.5-5.0) mmol/L Chloride (101-111) mmol/L Carbon Dioxide (22-32) mmol/L Anion Gap (2-11) mmol/L BUN (6-24) mg/dL Creatinine (0.51-0.95) mg/dL Est GFR ( Amer) (>60) Est GFR (Non-Af Amer) (>60) BUN/Creatinine Ratio (8-20) Glucose (70-100) mg/dL Lactic Acid (0.5-2.0) mmol/L Calcium (8.6-10.3) mg/dL Magnesium (1.9-2.7) mg/dL Total Bilirubin (0.2-1.0) mg/dL AST (13-39) U/L ALT (7-52) U/L Alkaline Phosphatase (34-104) U/L Total Creatine Kinase (10-223) U/L CK-MB (CK-2) (0.6-6.3) ng/mL Troponin I 0.04 H* (<0.04) ng/mL C-Reactive Protein (< 5.00) mg/L B-Natriuretic Peptide ( - 100) pg/mL Total Protein (6.4-8.9) g/dL Albumin (3.2-5.2) g/dL Globulin (2-4) g/dL Albumin/Globulin Ratio (1-3) TSH Pending (0.34-5.60) mcIU/mL Free T4 0.59 L (0.61-1.12) ng/dL Total T3 Pending Urine Color Urine Appearance Urine pH (5-9) Ur Specific [place] (1.010-1.030) Urine Protein (Negative) Urine Ketones (Negative) Urine Blood (Negative) Urine Nitrate (Negative) Urine Bilirubin (Negative) Urine Urobilinogen (Negative) Ur Leukocyte Esterase (Negative) Urine Glucose (Negative) Influenza A (Rapid) Negative (Negative) Influenza B (Rapid) Negative (Negative) Result Diagrams: 04/19/17 13:19 04/19/17 13:19 Lab Statement: Any lab studies that have been ordered have been reviewed, and results considered in the medical decision making process. - Radiology Chest X-ray Radiology Interpretation Completed By: Radiologist - CXR reveals, per radiologist, NO ACTIVE CARDIOPULMONARY DISEASE IS NOTED. ED physician has reviewed this radiology report and agrees. - CT Brain CT CT Interpretation Completed By: Radiologist - Brain CT reveals No intracranial mass or hemorrhage is noted. ED physician has reviewed the radiology report. Chest CT CT Interpretation Completed By: Radiologist - Chest CT reveals 1. Advanced emphysema. 2. No evidence for pneumonia. 3. Stable RIGHT pulmonary nodules compared with a CT from 2010 without concern. No suspicious focal pulmonary lesions evident. 4. Coronary artery calcifications. 5. Partially visualized LEFT kidney with suggestion of hydronephrosis. Correlate with clinical assessment and consider follow-up renal ultrasound for further assessment ED physician has reviewed the radiology report. - EKG 1054 EKG Rhythm: Sinus Rhythm - 79 bpm Ectopy: None EKG Interpretation: EKG at 1054 shows LBBB Chest Pain Course/Dx - Course Course Of Treatment: ADMIT HOSPITALIST - Diagnoses Provider Diagnoses: Chest pain Discharge - Discharge Plan Condition: Stable Disposition: ADMITTED TO [facility] Referrals: Ruth Russell MD [Primary Care Provider] - The documentation as recorded by the Karissa greene Abhishek accurately reflects the service I personally performed and the decisions made by , Alec Tam MD.
[2017-04-19] MEDS: Atorvastatin* 20 MG TAB PO SCH (22:10)
[2017-04-19] MEDS ORDERED: Acetaminophen TAB* 325 MG PO PRN (22:23)
[2017-04-20] MEDS: Metoprolol Tartrate TAB* 25 MG PO SCH ×3 (00:31→14:22)
--- NOTE | 2017-04-20 01:42 | HP ---
HISTORY AND PHYSICAL: DATE OF ADMISSION: 04/19/17 ADMITTING PROVIDER: Kilo Hernandez MD PRIMARY CARE PHYSICIAN: Dr. Russell. CHIEF COMPLAINT: Chest discomfort, shortness of breath, dyspnea on exertion, intermittent urinary frequency and pain radiating from legs up through entire body; headache. 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 She never had this sensation before , worst was 9/10. She was short of breath at rest and especially with exertion. There seemed to be a pleuritic component of the pain and it was worse with sitting up and leaning forward. She took 1 baby aspirin along with her other morning medications and was evaluated at the Urgent Care. She was found to be hypertensive to 229/117 and at some point, had 3 additional baby aspirins. She initially had the headache. No abdominal pain. She has had some urinary frequency over the last few days and started to take over-the- counter medications for suspected urinary tract infection with cranberry, vitamin C, probiotic (AZO). She had the pain that radiated all the way from her bilateral legs up into her entire rest of her body, cramping like sensations , which she attest to being concern for urinary tract infection. She denies any history of kidney stones, although does have a history of some hematuria, though not recently. On presentation to [place] [facility] [place], her blood pressure had somewhat improved, although still elevated to 188/108. She received morphine 4 mg, was ordered for nitroglycerin 0.4, but that was not given and started on some maintenance IV fluids at 150 cc an hour. Initial troponin was negative at 0.00. Initial TSH was notably elevated at 96.43. She , of note, has been on Synthroid for hypothyroidism approximately 10 years and reports mildly fluctuating thyroid levels, though she cannot remember specific results. She did have blood work approximately 4 to [address] Russell , but no changes in her Synthroid dosing was made at that time. In the emergency room, the patient had EKG, which showed known old left bundle branch block, some T-wave inversions lateral in the I and aVL. She was admitted to Medicine, observation status for chest pain or acute chest syndrome rule out and hypertensive urgency. Additional workup includes CT of the abdomen and pelvis, CT chest, CT head, chest x-ray. Findings were significant for some left peripelvic renal cyst, emphasis of emphysema. No hydronephrosis or renal calculi. PAST MEDICAL HISTORY: Hypertension, COPD, hyperlipidemia. Daily wine drinker, 1 to 2 glasses. Melanoma of the left eye 10 years ago, status post radiation, peptic ulcer disease, hypothyroidism x10 years. PAST SURGICAL HISTORY: Hysterectomy, cataract surgery. HOME MEDICATIONS: Include: 1. Simvastatin 40 mg daily. 2. Lisinopril 20 mg daily. 3. Synthroid 125 mcg daily. 4. Flovent b.i.d. 5. Citalopram 40 mg daily. 6. Aspirin 81 mg daily. 7. Albuterol q.4 hours p.r.n. 8. Potassium supplementation (? dosing). 9. Vitamin D3 (? dosing). ALLERGIES: IV CONTRAST, gets eye swelling. FAMILY HISTORY: Mother of heart disease and lung cancer in her 80s. Dad, heart disease in his 70s. Two aunts with ovarian cancer. Mother was also a heavy smoker. SOCIAL HISTORY: She is a former smoker, quit 20 years ago for 30 years, maximum of 2 packs a day. She is 1 to 2 glasses of wine nightly drinker supplemented by vodka. Denies any history of alcohol withdrawal symptoms or seizures. She is retired. Lives as a many years living with her significant other. Son, Pradeep Fitzpatrick, is her medical surrogate. REVIEW OF SYSTEMS: Complete 14-point review of systems was negative except as per HPI. She attest that no specific known sick contacts, but her significant other says some of the children she has been around did have runny noses. Does attest to some wood fireplace exposure that leaves a soot on the windows inside of her house upon cleaning. PHYSICAL EXAMINATION GENERAL APPEARANCE: No acute distress. Sitting up in [facility]. VITAL SIGNS: Currently 164/81, satting 95% on room air, respiratory rate 11, pulse 73, temperature 98.3, blood pressure initially was 180/108 and at Urgent clinic 229/117. HEENT: Normocephalic, atraumatic. Pupils equally round and reactive. Extraocular motions intact. NECK: No cervical lymphadenopathy. Supple. Mucous membranes moist. PULMONARY: Clear to auscultation bilaterally with no wheezing, rales, or rhonchi. Good air exchange bilaterally. CARDIOVASCULAR: Regular rate and rhythm. No murmurs, rubs, or gallops. ABDOMEN: Soft, nontender, nondistended. No peritoneal signs. No guarding. EXTREMITIES: Warm and well perfused. No peripheral edema. NEUROLOGIC: Cranial nerves II through XII intact. Sensation and strength intact bilaterally. MUSCULOSKELETAL/BACK: No CVA tenderness. No significant pain to palpation of the clavicles or anterosuperior chest. SKIN: No rashes, no lesions. DIAGNOSTIC STUDIES/LAB DATA: White count 9.0, hemoglobin 15.5, hematocrit 46, platelets 242. INR 0.83. D-dimer less than 200. Sodium 136, potassium 3.9, chloride 103, carbon dioxide 23, BUN 12, creatinine 0.83, glucose 87, lactic acid 1.4, magnesium 2.4, bilirubin 0.6, AST 50, ALT 34, alk phos 38. CK-MB 1.8. Troponin 0.00 initially, rising to 0.04. CRP is 5.04. BNP 57. Albumin 4.2, TSH 96.43. Urinalysis within normal limits. Specific gravity 1.011. Influenza A and B both negative. IMAGING: CT abdomen and pelvis noncontrast, no acute finding, several left peripelvic renal cyst. CT chest on contrast showed advanced emphysema, no evidence of pneumonia, stable right pulmonary nodules 0.4 cm and 0.7 cm stable from 2011 CT. No suspicious focal pulmonary lesions evident, coronary artery calcifications, partially visualized left kidney suggestive of hydronephrosis ( not seen on additional CT abdomen and pelvis) thought correlated to peripelvic renal cyst. Brain CT on contrast, no intracranial mass or hemorrhage. Chest x- ray, no active cardiopulmonary disease. ASSESSMENT AND PLAN: Padmini Fitzpatrick is a 71-year-old female with past medical history of chronic obstructive pulmonary disease, hypertension, hyperlipidemia, melanoma, hypothyroidism, presenting with acute onset sharp sometimes pleuritic chest pain, shortness of breath at rest worsening with exertion. Initial troponin negative but rising to 0.04 on initial check. She is status post 4 baby aspirin and continues to have chest discomfort. We will give her nitroglycerin, initially sublingual and then patch or drip as needed. I am starting her on heparin drip. She does have risk factors of significant smoking history, advanced age, hypertension. Symptoms may also be related to her hypertensive urgency, which has somewhat improved. She has taken her lisinopril 20 mg daily, which we will continue and start her on metoprolol 25 mg q.6 hours additionally for the acute coronary syndrome to rule out and monitor her on telemetry. Continue to trend troponins and keep her n.p.o. for now. Continue her chronic obstructive pulmonary disease inhalers p.r.n. For hypothyroidism with markedly elevated TSH, repeat TSH, total T3 and free T4 are pending. We will get lipid panel and A1c for further cardiac risk stratification. I did not see echocardiogram in our system and she cannot report, otherwise consider echocardiogram to rule out wall motion abnormalities. EKG with unchanged left bundle branch block, but with some T- wave inversions laterally. Consider Cardiology consult in the morning, n.p.o. midnight for stress test likely. The patient is a full code. Medical surrogate is her son, Pradeep Fitzpatrick. For DVT prophylaxis, she is on heparin drip. Urinalysis was not suspicious for urinary tract infection. Consider repeat if symptoms continue. [id number]/[facility] #: [id number] [facility]
[2017-04-20] MEDS: NS 0.9% 1000 ML* 1,000 ML IV SCH (05:39)
[2017-04-20] MEDS ORDERED: Levothyroxine TAB* 125 MCG TAB PO SCH (06:00)
[2017-04-20] MEDS ORDERED: Levothyroxine TAB* 175 MCG TAB PO SCH (06:00)
[2017-04-20] MEDS: Atorvastatin* 20 MG TAB PO SCH (08:41)
[2017-04-20] MEDS ORDERED: Lisinopril TAB* 10 MG PO SCH (09:00)
[2017-04-20] MEDS ORDERED: Citalopram TAB* 40 MG PO SCH (09:00)
[2017-04-20] MEDS ORDERED: Aspirin EC Low Dose* 81 MG TAB.EC PO SCH (09:00)
[2017-04-20] MEDS ORDERED: [UNRECOGNIZED DRUG - OTHER] PO PRN (09:00)
[2017-04-20] MEDS ORDERED: Regadenoson* 0.4 MG/5 ML SYRINGE ONE (11:30)
[2017-04-20] MEDS ORDERED: Aminophylline IV* 25 MG/ML 10 ML VIAL ONE (11:30)
[2017-04-20 11:40] VITALS: BP 116/68
--- NOTE | 2017-04-20 13:47 | RAD ---
Edited for charges. INDICATION: Chest pain. COMPARISON: No relevant prior exams available on the [facility] [place]. TECHNIQUE: 10.900 mCi of Tc-99m Myoview were administered IV. SPECT images of the heart were obtained. Later on the same day. Under the direction of Dr. Reyes, the patient was given an IV injection of a pharmacologic stress agent. Subsequently, the patient was given an IV injection of 25.050 mCi Tc-99m Myoview. SPECT images of the heart were obtained and a gated wall motion study was performed. FINDINGS: Gated wall motion images were obtained at stress and demonstrate wall motion to be within normal limits. The calculated left ventricular ejection fraction is 89 % at stress. Estimated LEFT ventricular end diastolic volume is 40 mL. TID 0.93. Based on review of the attenuation corrected and non corrected images the distribution of radiopharmaceutical within the myocardium on the stress and rest images is within normal limits. No fixed or reversible regions of hypoperfusion evident. IMPRESSION: 1. No evidence for stress induced myocardial ischemia or presence of an infarct. 2. Normal left ventricular wall motion and ejection fraction. ASSESSMENT: Low risk based on the nuclear portion. Based on imaging criteria from ACC/AHA 2002 Guideline Update for the Management of Patients With Chronic Stable Angina Table 23. Noninvasive Risk Stratification. MTDD
[2017-04-20] MEDS ORDERED: Mometasone 220 MCG MDI INH SCH (18:00)
--- NOTE | 2017-04-21 01:39 | DS ---
DISCHARGE SUMMARY: DATE OF ADMISSION: 04/19/17 DATE OF DISCHARGE: 04/20/17 ADMITTING PROVIDER: Kilo Hernandez MD ATTENDING PROVIDER: Kilo Hernandez MD PRIMARY CARE PHYSICIAN: Dr. Russell. CHIEF COMPLAINT: Chest discomfort, shortness of breath, dyspnea on exertion, headache. PRINCIPAL DIAGNOSES: Acute coronary syndrome ruled out; hypertensive urgency; uncontrolled hypothyroidism. HISTORY OF PRESENT ILLNESS AND HOSPITAL COURSE: Ms. Padmini Fitzpatrick is a 71-year -old female with PMH of COPD, hypertension, hyperlipidemia, melanoma removed from the left eye 10 years prior, status post radiation, peptic ulcer disease, hypothyroidism, osteopenia, who was woken from sleep on the morning of admission with sharp radiating pain radiating across the center and upper parts of bilateral chest, shoulders, sharp. Initially quite severe, 9/10, never had this sensation before. She had some shortness of breath at rest with exertion and with deep breath. Pain was worse sitting up or leaning forward. She took one baby aspirin, evaluated at the urgent care center, found to be hypertensive to 229/117, has got 3 additional baby aspirins. She has been complaining of some urinary frequency, had started to take AZO (cranberry, vitamin C, probiotic ). She occasionally had pain radiating from the entire body, cramp like. On presentation to [facility] Emergency Room, her blood pressure had improved somewhat, but still elevated to 180/108. She received 4 mg of IV morphine, nitroglycerin 0.4 although she did not actually receive that, started IV fluids. Initial troponin was 0.00. EKG was significant for left bundle branch block, which was unchanged with T-wave inversions laterally. Her TSH was minimally elevated at 96 and on repeat testing 104 with total T3 of 0.40, low and free T4 of 0.59 low and her Synthroid dose was increased from 125 mcg to 175 mcg daily and she will need to follow up with additional labs in approximately 4 weeks for repeat testing. She was monitored on telemetry overnight, admitted to observation status for ACS rule out. Second troponin was 0.04, third troponin was 0.01 and she had been placed on heparin drip when she still had symptoms of chest pain initially and intermediately elevated troponin. Chest pain sensations had resolved, although still had occasional sensation, fullness in her superior chest near sternal notch and some pain with deep breathing. She was n.p.o. midnight, given nuclear stress test, which did not show any evidence of ischemia and was low risk. She is being admitted for further followup with Dr. Russell next week and asked to monitor her blood pressures at home. She initially was put on atenolol 25 mg q.6 hours and continued on lisinopril 20 mg daily. She received brain CT head, which showed no intracranial mass or hemorrhage. CT chest noncontrast, which was initially considering for possible left hydronephrosis given partial visualization of left kidney, had stable right pulmonary nodules consistent with CT scan from 2010. No evidence of pneumonia. Did have evidence of advanced emphysema. CT abdomen and pelvis was obtained, which demonstrated several left peripelvic renal cysts, which appeared to account for the prior CT chest abnormalities, no evidence of hydronephrosis. She had a negative urinalysis and negative influenza screen. Her HDL was 51, LDL 139, triglycerides 276, total cholesterol 246 and A1c was 4.9. DISCHARGE MEDICATIONS: 1. Simvastatin 40 mg daily. 2. Lisinopril 20 mg daily. 3. Synthroid 175 mcg daily (increased from 125 mcg daily). 4. Flovent b.i.d. 5. Citalopram 40 mg daily. 6. Aspirin 81 mg daily. 7. Albuterol q.4 hours p.r.n. 8. Potassium supplementation (unknown dose). 9. Vitamin D3 (unknown dose). DISCHARGE DIET: Heart healthy. ACTIVITY LEVEL: No restrictions. FOLLOW-UP: Please follow up with Dr. Russell in 3 to 5 days from discharge. The patient will need followup thyroid studies in approximately 4 weeks. TIME SPENT ON DISCHARGE: 25 minutes. [id number]/[facility] #: [id number] [facility]ITAL[facility]
== END 2017-04-20 15:40 | disposition home or self-care (01) ==
LOC: ED 11:41 → MEDTELE 18:38
PROVIDERS: ADMIT Internal Medicine; ATTEND Internal Medicine
DX: R07.89 Other chest pain (principal); I16.0 Hypertensive urgency; R06.02 Shortness of breath; I44.7 Left bundle-branch block, unspecified; R06.09 Other forms of dyspnea; R51 Headache; E03.8 Other specified hypothyroidism; J44.9 Chronic obstructive pulmonary disease, unspecified; E78.5 Hyperlipidemia, unspecified; Z85.820 Personal history of malignant melanoma of skin; I25.10 Atherosclerotic heart disease of native coronary artery without angina pectoris; Z79.899 Other long term (current) drug therapy; Z87.891 Personal history of nicotine dependence; M79.1 Myalgia; J43.9 Emphysema, unspecified; R35.0 Frequency of micturition
CPT/HCPCS: 36415; 70450; 71010; 71250; 74176; 78452; 80053; 80061; 81003; 82550; 82553; 83036; 83605; 83735; 83880; 84439; 84443; 84479; 84484; 85025; 85379; 85610; 85730; 86140; 87502; 93005; 93017; 96374; 96375; 99283; A9270-GY; A9502; G0378; J0280; J1644; J2270; J2405; J2785

== ENCOUNTER 2017-12-18 10:41 | Emergency (ER) | payer MEDICARE ==
[2017-12-18 10:49] VITALS: BP 147/74
--- NOTE | 2017-12-18 10:57 | UC ---
Complaint Female HPI - HPI Summary HPI Summary: 72 yo female presents with urinary burning, frequency, and urgency over the last week. She took AZO the first 3 days and thought her symptoms were improving , but they have since returned. She has had many UTIs in the past and this feels the same. She also complains of her ears feeling "full" over the last 3 days L>R. Does not a history of seasonal allergies. Denies fever, chills, cough , abdominal pain, n/v/d/c, hematuria, vaginal discharge or itchiness. - History Of Current Complaint Chief Complaint: UCGU Stated Complaint: URINARY ISSUE EAR ISSUE Time Seen by Provider: 12/18/17 10:56 Hx Obtained From: Patient Onset/Duration: Gradual Onset Timing: Constant Severity Initially: Moderate Severity Currently: Moderate Pain Intensity: 7 Pain Scale Used: 0-10 Numeric - Allergies/Home Medications Allergies/Adverse Reactions: Allergies Allergy/AdvReac Type Severity Reaction Status Date / Time ciprofloxacin [From Cipro] Allergy Rash And Verified 12/18/17 10:50 Itching Iodine and Iodide Containing Allergy Swelling Verified 12/18/17 10:50 Produc PMH/Surg Hx/FS Hx/Imm Hx Endocrine History: Hypothyroidism, Dyslipidemia Cardiovascular History: Hypertension Respiratory History: Asthma Psychological History: Anxiety, Depression - Surgical History Surgical History: Yes Surgery Procedure, Year, and Place: Hysterectomy, laparoscopy, tonsillectomy, eye surgery for melanoma radiation treatment , lt wrist surgery radius ulna. - Family History Known Family History: Positive: Cardiac Disease - mother and father, Hypertension, Other - no FHx of kidney stones or kidney disease Negative: Renal Disease - Social History Occupation: Retired Lives: With Family Alcohol Use: Daily Alcohol Amount: couple glasses of wine per day Substance Use Type: None Smoking Status (MU): Former Smoker Type: Cigarettes Amount Used/How Often: 1 ppd Length of Time of Smoking/Using Tobacco: 26 years Have You Smoked in the Last Year: No When Did the Patient Quit Smoking/Using Tobacco: 1991 - Immunization History Most Recent Influenza Vaccination: fall 2016 Most Recent Tetanus Shot: 2009 Most Recent Pneumonia Vaccination: never Review of Systems Constitutional: Negative Skin: Negative Eyes: Negative ENT: Ear Ache Respiratory: Negative Cardiovascular: Negative Gastrointestinal: Negative Genitourinary: Dysuria, Frequency, Urgency Neurovascular: Negative Neurological: Negative Psychological: Negative All Other Systems Reviewed And Are Negative: Yes Physical Exam - Summary Physical Exam Summary: GENERAL: NAD. WDWN. No pain distress. SKIN: No rashes, sores, lesions, or open wounds. NECK: Supple. Nontender. No lymphadenopathy. HEENT: Head: AT/NC Eyes: EOM intact. Conjunctiva clear without inflammation or discharge. Ears: Hearing grossly normal. LEFT ear canal with mild erythema. TM intact and without erythema or bulging. No canal edema or drainage. Right ear WNL TM intact. Nose: Nasal mucosa pink and moist. NTTP maxillary and frontal sinus. Throat: Posterior oropharynx without exudates, erythema, or tonsillar enlargement. Uvula midline. CHEST: CTAB. No r/r/w. No accessory muscle use. Breathing comfortably and in no distress. CV: RRR. Without m/r/g. Pulses intact. Cap refill <2seconds ABDOMEN: Soft. NTTP. No distention or guarding. No CVA tenderness. Bowel sounds present NEURO: Alert. CN II-XII grossly intact. PSYCH: Age appropriate behavior. Triage Information Reviewed: Yes Vital Signs: Initial Vital Signs Temp 97.5 F 12/18/17 10:43 Pulse 81 12/18/17 10:43 Resp 18 12/18/17 10:43 BP 147/74 12/18/17 10:43 Pulse Ox 98 12/18/17 10:43 Laboratory Tests 12/18/17 10:58 POC Urine Color Yellow POC Urine Clarity Cloudy POC Urine pH 5.5 POC Ur Specif [place] 1.015 POC Urine Protein Trace A POC Ur Glucose (UA) Negative POC Urine Ketones Negative POC Urine Blood Trace-intact A POC Urine Nitrite Negative POC Urine Bilirubin Negative POC Urine Urobilinogen 0.2 POC U Leukocyte Esteras 2+ A Vital Signs Reviewed: Yes Complaint Female Dx - Course Course Of Treatment: UA with signs of infection. Left ear is mildly erythematous , but no obvious signs of infection. Will place her on Augmentin to cover for UTI and potential infectious cause of left ear discomfort. - Differential Dx/Diagnosis Provider Diagnoses: UTI. Left ear pain Discharge - Sign-Out/Discharge Documenting (check all that apply): Patient Departure All imaging exams completed and their final reports reviewed: No Studies - Discharge Plan Condition: Stable Disposition: HOME Prescriptions: Amoxicillin/Clavulanate TAB* [Augmentin TAB 875*] 875 mg PO BID #14 tab Patient Education Materials: Urinary Tract Infection in Women (ED) Referrals: Ruth Russell MD [Primary Care Provider] - Additional Instructions: If you develop a fever, shortness of breath, chest pain, new or worsening symptoms - please call your PCP or go to the ED. Your blood pressure was mildly elevated at todays visit. Please see your primary provider within 4 weeks for recheck and re-evaluation. - Billing Disposition and Condition Condition: STABLE Disposition: Home
== END 2017-12-18 11:15 | disposition home or self-care (01) ==
LOC: UCEAST 10:41
DX: N39.0 Urinary tract infection, site not specified (principal); H92.02 Otalgia, left ear; J45.909 Unspecified asthma, uncomplicated; Z88.1 Allergy status to other antibiotic agents; Z88.8 Allergy status to other drugs, medicaments and biological substances; I10 Essential (primary) hypertension; Z87.891 Personal history of nicotine dependence
CPT/HCPCS: 81003; 87077; 87086; 99212; G0463

== ENCOUNTER 2018-03-23 09:56 | Emergency (ER) | payer MEDICARE ==
[2018-03-23 10:03] VITALS: BP 145/65
[2018-03-23] MEDS ORDERED: Amoxicillin/Clavulanate TAB* 875 MG PO ONE (10:30)
--- NOTE | 2018-03-23 10:36 | UC ---
Upper Extremity HPI - HPI Summary HPI Summary: 72 y/o female with recent bite from her own dog- chana berman, 14 weeks old, up to date on all vaccinations. occurred 4 days ago, increasd pain, swelling, redness since this time, concerned about infection. no fever, chills - History of Current Complaint Chief Complaint: UCUpperExtremity Stated Complaint: FINGER INJURY Time Seen by Provider: 03/23/18 10:22 Hx Obtained From: Patient ?: No Onset/Duration: Sudden Onset, Lasting Days - x 4 days Severity Initially: Moderate Severity Currently: Severe Pain Intensity: 8 Pain Scale Used: 0-10 Numeric Location Of Pain: Is Discrete @ - right thumb Aggravating Factor(s): Movement - Allergies/Home Medications Allergies/Adverse Reactions: Allergies Allergy/AdvReac Type Severity Reaction Status Date / Time ciprofloxacin [From Cipro] Allergy Rash And Verified 03/23/18 10:04 Itching Iodine and Iodide Containing Allergy Swelling Verified 03/23/18 10:04 Produc PMH/Surg Hx/FS Hx/Imm Hx Previously Healthy: Yes - Surgical History Surgical History: Yes Surgery Procedure, Year, and Place: Hysterectomy, laparoscopy, tonsillectomy, eye surgery for melanoma radiation treatment , lt wrist surgery radius ulna. - Family History Known Family History: Positive: Cardiac Disease - mother and father, Hypertension, Other - no FHx of kidney stones or kidney disease Negative: Renal Disease - Social History Alcohol Use: Daily Alcohol Amount: couple glasses of wine per day Substance Use Type: None Smoking Status (MU): Former Smoker Type: Cigarettes Amount Used/How Often: 1 ppd Length of Time of Smoking/Using Tobacco: 26 years Have You Smoked in the Last Year: No When Did the Patient Quit Smoking/Using Tobacco: 1991 - Immunization History Most Recent Influenza Vaccination: fall 2016 Most Recent Tetanus Shot: 2009 Most Recent Pneumonia Vaccination: never Review of Systems All Other Systems Reviewed And Are Negative: Yes Musculoskeletal: Positive: Edema, Myalgia Is Patient Immunocompromised?: No Physical Exam Triage Information Reviewed: Yes Appearance: Well-Appearing, No Pain Distress, Well-Nourished Vital Signs: Initial Vital Signs Temp 96.4 F 03/23/18 10:00 Pulse 85 03/23/18 10:00 Resp 18 03/23/18 10:00 BP 145/65 03/23/18 10:00 Pulse Ox 97 03/23/18 10:00 Vital Signs Reviewed: Yes Eyes: Positive: Conjunctiva Clear Musculoskeletal: Positive: Strength Intact - r thumb, ROM Intact, Edema @ - right thumb distally mild Neurological Exam: Normal Neurological: Positive: Other: - sensation intact R thumb Psychological Exam: Normal Skin: Positive: Other - small 5mm laceration, healed without drainage distal lateral nail r thumb. minimal erythema around area, no lymphangitic spread. Upper Extremity Course/Dx - Course Course Of Treatment: radiograph- neg for FB, bactrim, soaks, follow up with ortho for wound checks - Differential Dx/Diagnosis Provider Diagnosis: Dog bite Discharge - Sign-Out/Discharge Documenting (check all that apply): Patient Departure All imaging exams completed and their final reports reviewed: Yes - Discharge Plan Condition: Good Disposition: HOME Prescriptions: Amoxicillin/Clavulanate TAB* [Augmentin TAB 875*] 875 mg PO BID #20 tab Patient Education Materials: Animal Bite (ED) Referrals: Ruth Russell MD [Primary Care Provider] - Lady Gavin MD [Medical Doctor] - (Follow up in 3-5 days for re- evaluation ) Additional Instructions: - warm water soaks x 3 daily - Antibiotics as prescribed - FOllow up with orthopedics if no improvement within 2-3 days or worsening of symptoms. - Keep area covered, bacitracin over twice daily - Billing Disposition and Condition Condition: GOOD Disposition: Home
== END 2018-03-23 11:15 | disposition home or self-care (01) ==
LOC: UCEAST 09:56
DX: M79.89 Other specified soft tissue disorders (principal); S69.91XA Unspecified injury of right wrist, hand and finger(s), initial encounter; W54.0XXA Bitten by dog, initial encounter; Y92.9 Unspecified place or not applicable; Z88.1 Allergy status to other antibiotic agents; Z87.891 Personal history of nicotine dependence
CPT/HCPCS: 99212; A9270-GY; G0463

== ENCOUNTER 2018-10-23 13:50 | Emergency (ER) | payer MEDICARE ==
[2018-10-23 14:02] VITALS: BP 136/66
--- NOTE | 2018-10-23 14:23 | UC ---
Complaint Female HPI - HPI Summary HPI Summary: 73-year-old female presents with 2 week history of UTI symptoms. States she initially had burning with urination, suprapubic discomfort, urinary frequency, and urgency. States her symptoms did improve after 4-5 days however she continued to have some urinary frequency and urgency. Over the past couple of days she started noticing burning at the end of urination again. Denies fever, chills, abdominal pain, back or flank pain, nausea, vomiting, hematuria, vaginal discharge, or abnormal bleeding. - History Of Current Complaint Chief Complaint: UCGU Stated Complaint: URINARY ISSUE Time Seen by Provider: 10/23/18 14:17 Hx Obtained From: Patient Pain Intensity: 0 - Allergies/Home Medications Allergies/Adverse Reactions: Allergies Allergy/AdvReac Type Severity Reaction Status Date / Time ciprofloxacin [From Cipro] Allergy Rash And Verified 10/23/18 14:02 Itching Iodine and Iodide Containing Allergy Swelling Verified 10/23/18 14:02 Produc Home Medications: Home Medications Cholecalciferol (Vitamin D3) [Vitamin D3] 2,000 unit PO DAILY 10/23/18 [History Confirmed 10/23/18] Lisinopril/HCTZ 20/12.5(NF) [Zestoretic 20/12.5(NF)] 1 tab PO DAILY 10/23/18 [ History Confirmed 10/23/18] Multivitamins/Minerals TAB* [Theragran/minerals TAB*] 1 tab PO DAILY 10/23/18 [ History Confirmed 10/23/18] PMH/Surg Hx/FS Hx/Imm Hx Endocrine History: Hypothyroidism, Dyslipidemia Cardiovascular History: Hypertension Respiratory History: COPD Psychological History: Depression - Surgical History Surgical History: Yes Surgery Procedure, Year, and Place: Hysterectomy, laparoscopy, tonsillectomy, eye surgery for melanoma radiation treatment , lt wrist surgery radius ulna. - Family History Known Family History: Positive: Cardiac Disease - mother and father, Hypertension, Other - no FHx of kidney stones or kidney disease Negative: Renal Disease - Social History Occupation: Retired Lives: With Family Alcohol Use: Daily Alcohol Amount: couple glasses of wine per day Substance Use Type: None Smoking Status (MU): Former Smoker Type: Cigarettes Amount Used/How Often: 1 ppd Length of Time of Smoking/Using Tobacco: 30 years Have You Smoked in the Last Year: No When Did the Patient Quit Smoking/Using Tobacco: 1991 - Immunization History Most Recent Influenza Vaccination: fall 2016 Most Recent Tetanus Shot: 2009 Most Recent Pneumonia Vaccination: never Review of Systems All Other Systems Reviewed And Are Negative: Yes Constitutional: Negative: Fever, Chills Respiratory: Positive: Negative Cardiovascular: Positive: Negative Gastrointestinal: Negative: Abdominal Pain, Vomiting, Nausea Genitourinary: Positive: Dysuria, Frequency, Urgency. Negative: Hematuria, Vaginal/Penile Discharge, Abnormal Bleeding Musculoskeletal: Positive: Negative Neurological: Positive: Negative Is Patient Immunocompromised?: No Physical Exam - Summary Physical Exam Summary: GENERAL APPEARANCE: Well developed, well nourished, alert and cooperative, and appears to be in no acute distress. CARDIAC: Normal S1 and S2. No S3, S4 or murmurs. Rhythm is regular. There is no peripheral edema, cyanosis or pallor. Extremities are warm and well perfused. Capillary refill is less than 2 seconds. Peripheral pulses intact. LUNGS: Clear to auscultation without rales, rhonchi, wheezing or diminished breath sounds. ABDOMEN: Positive bowel sounds. Soft, nondistended, nontender. No guarding or rebound. No masses or hepatosplenomegally. No CVA tenderness. MUSKULOSKELETAL: ROM intact to all extremities. No joint erythema or tenderness. Normal muscular development. Normal gait. SKIN: Skin normal color, texture and turgor with no lesions or eruptions. Triage Information Reviewed: Yes Vital Signs: Initial Vital Signs Temp 97.7 F 10/23/18 13:57 Pulse 70 10/23/18 13:57 Resp 16 10/23/18 13:57 BP 136/66 10/23/18 13:57 Pulse Ox 97 10/23/18 13:57 Vital Signs Reviewed: Yes Complaint Female Dx - Course Course Of Treatment: 73-year-old female presents with 2 week history of UTI symptoms. States she initially had burning with urination, suprapubic discomfort, urinary frequency, and urgency. States her symptoms did improve after 4-5 days however she continued to have some urinary frequency and urgency. Over the past couple of days she started noticing burning at the end of urination again. Denies fever, chills, abdominal pain, back or flank pain, nausea, vomiting, hematuria, vaginal discharge, or abnormal bleeding. Afebrile. Vital signs stable. Patient's exam was overall unremarkable. [id number] urinalysis showed 3+ leukocyte esterase and trace blood. Urine culture is pending. Will treat empirically for a urinary tract infection with Macrobid 100 mg twice a day 5 days. She is to follow-up with her primary care provider in 3-5 days if symptoms do not improve. Anticipatory guidance warning symptoms were reviewed with the patient. Verbalizes understanding and agrees with plan of care. - Differential Dx/Diagnosis Differential Diagnosis/HQI/PQRI: Renal Colic, Ureteral Stone, Urinary Tract Infection Provider Diagnosis: UTI (urinary tract infection) Discharge - Sign-Out/Discharge Documenting (check all that apply): Patient Departure All imaging exams completed and their final reports reviewed: No Studies - Discharge Plan Condition: Stable Disposition: HOME Prescriptions: Nitrofurantoin Monohyd/M-Cryst [Macrobid 100 mg Capsule] 100 mg PO BID #10 cap Patient Education Materials: Urinary Tract Infection in Women (ED) Referrals: Ruth Russell MD [Primary Care Provider] - 3 Days Additional Instructions: Your urine test in the clinic today is suggestive of a urinary tract infection. We will start you on an antibiotic to treat for the infection. We will also send a urine culture today to see what bacteria grow out and make sure the antibiotic you were prescribed is appropriate to treat the infection. It will take 48-72 hours to get these results. We will contact you if there is any change in your treatment plan. Start Macrobid 1 tab twice a day for 5 days. Drink plenty of fluids. To help prevent urinary tract infections: 1) Be sure to wipe from front to back. 2) Urinate immediately after any sexual intercourse. 3) Avoid taking bubble baths. Follow up with your primary care provider in 3-5 days if symptoms persist. Seek immediate medical attention in the emergency room if you develop fever greater than 100.5 F, have severe abdominal pain, persistent vomiting, or any worsening of symptoms. - Billing Disposition and Condition Condition: STABLE Disposition: Home
--- NOTE | 2018-10-25 08:25 | UC ---
- Progress Note Progress Note: awaiting final report may need to change antibiotic when sensitivities available Course/Dx - Diagnoses Provider Diagnoses: UTI (urinary tract infection) Discharge - Sign-Out/Discharge Documenting (check all that apply): Post-Discharge Follow Up All imaging exams completed and their final reports reviewed: No Studies - Discharge Plan Condition: Stable Disposition: HOME Prescriptions: Nitrofurantoin Monohyd/M-Cryst [Macrobid 100 mg Capsule] 100 mg PO BID #10 cap Patient Education Materials: Urinary Tract Infection in Women (ED) Referrals: Ruth Russell MD [Primary Care Provider] - 3 Days Additional Instructions: Your urine test in the clinic today is suggestive of a urinary tract infection. We will start you on an antibiotic to treat for the infection. We will also send a urine culture today to see what bacteria grow out and make sure the antibiotic you were prescribed is appropriate to treat the infection. It will take 48-72 hours to get these results. We will contact you if there is any change in your treatment plan. Start Macrobid 1 tab twice a day for 5 days. Drink plenty of fluids. To help prevent urinary tract infections: 1) Be sure to wipe from front to back. 2) Urinate immediately after any sexual intercourse. 3) Avoid taking bubble baths. Follow up with your primary care provider in 3-5 days if symptoms persist. Seek immediate medical attention in the emergency room if you develop fever greater than 100.5 F, have severe abdominal pain, persistent vomiting, or any worsening of symptoms. - Billing Disposition and Condition Condition: STABLE Disposition: Home
--- NOTE | 2018-10-25 20:22 | UC ---
- Progress Note Progress Note: URINE CULTURE WITH 25-50,000 CFU/ML PROTEUS MIRABILIS RESISTANT TO MACROBID. PLEASE CALL PATIENT. ADVISE TO STOP MACROBID AND START KEFLEX WHICH HAS BEEN SENT TO [facility]. F/U PCP ADVISED IF NOT IMPROVING EXPECTED. Course/Dx - Diagnoses Provider Diagnoses: UTI (urinary tract infection) Discharge - Sign-Out/Discharge Documenting (check all that apply): Post-Discharge Follow Up All imaging exams completed and their final reports reviewed: No Studies - Discharge Plan Condition: Stable Disposition: HOME Prescriptions: Cephalexin CAP* [Keflex 500 CAP*] 500 mg PO BID #10 cap Patient Education Materials: Urinary Tract Infection in Women (ED) Referrals: Ruth Russell MD [Primary Care Provider] - 3 Days Additional Instructions: Your urine test in the clinic today is suggestive of a urinary tract infection. We will start you on an antibiotic to treat for the infection. We will also send a urine culture today to see what bacteria grow out and make sure the antibiotic you were prescribed is appropriate to treat the infection. It will take 48-72 hours to get these results. We will contact you if there is any change in your treatment plan. Start Macrobid 1 tab twice a day for 5 days. Drink plenty of fluids. To help prevent urinary tract infections: 1) Be sure to wipe from front to back. 2) Urinate immediately after any sexual intercourse. 3) Avoid taking bubble baths. Follow up with your primary care provider in 3-5 days if symptoms persist. Seek immediate medical attention in the emergency room if you develop fever greater than 100.5 F, have severe abdominal pain, persistent vomiting, or any worsening of symptoms. - Billing Disposition and Condition Condition: STABLE Disposition: Home
== END 2018-10-23 14:32 | disposition home or self-care (01) ==
LOC: UCEAST 13:50
DX: N39.0 Urinary tract infection, site not specified (principal); B96.4 Proteus (mirabilis) (morganii) as the cause of diseases classified elsewhere; Z88.1 Allergy status to other antibiotic agents; I10 Essential (primary) hypertension; Z87.891 Personal history of nicotine dependence
CPT/HCPCS: 81003; 87077; 87086; 87186; 99212; G0463